=== PATIENT | female | born 1940 | race Caucasian/White ===

== ENCOUNTER 2017-09-20 15:02 | Emergency (ER) | payer MEDICARE ==
--- NOTE | 2017-09-20 15:06 | ED Physician Documentation ---
PD HPI SKIN - Stated complaint Stated Complaint: BILAT HAND RASH - History obtained from History obtained from: Patient - History of Present Illness Timing - onset: How many days ago (4) Timing - duration: Days (4) Timing - details: Gradual onset, Still present Location: RUE (initially left hand dorsum and then right as well, with intermittently feeling itchy all over, particularly when sitting in living room of [email or web address] they have been in for 5 days.), LUE Quality / character: Itchy, Discolored (red) Associated symptoms: No: Fever, Myalgias, Headache, Facial swelling, Dyspnea, N/ V/D Contributing factors: No: Exposed to medication, Exposed to food, Exposed to soap / lotion (staying at [employer], but she brings her own soaps and detergents with her.), Exposed to Poison dom/oak Similar symptoms before: Has not had sx before Recently seen: Not recently seen Review of Systems Constitutional: denies: Fever, Chills, Myalgias Nose: denies: Rhinorrhea / runny nose, Congestion Throat: denies: Sore throat Respiratory: denies: Dyspnea, Cough, Wheezing GI: denies: Nausea, Vomiting, Diarrhea Skin: reports: Rash (backs of hands and wrists) Neurologic: denies: Generalized weakness, Near syncope, Headache PD PAST MEDICAL HISTORY - Past Medical History Respiratory: None Endocrine/Autoimmune: None - Present Medications Home Medications: Ambulatory Orders Medication Instructions Recorded Confirmed Cephalexin [Keflex] 1 tab PO DAILY 09/20/17 Dexamethasone [Decadron] 4 mg PO DAILY #5 tablet 09/20/17 Levothyroxine [Synthroid] 1 tab PO DAILY 09/20/17 traMADol [Ultram] 100 mg PO DAILY 09/20/17 - Allergies Allergies/Adverse Reactions: Allergies Allergy/AdvReac Type Severity Reaction Status Date / Time Sulfa (Sulfonamide Allergy Unknown Verified 09/20/17 15:41 Antibiotics) amoxicillin AdvReac Rash Verified 09/20/17 15:41 ciprofloxacin [From Cipro] AdvReac Rash Verified 09/20/17 15:41 clindamycin AdvReac Rash Verified 09/20/17 15:41 phenylephrine AdvReac Anxiety Verified 09/20/17 15:41 pseudoephedrine AdvReac Anxiety Verified 09/20/17 15:41 [From Sudafed] PD ED PE NORMAL - Vitals Vital signs reviewed: Yes - General General: Alert and oriented X 3, No acute distress, Well developed/nourished - HEENT HEENT: Pharynx benign - Neck Neck: Supple, no meningeal sign, No adenopathy - Cardiac Cardiac: RRR, No murmur - Respiratory Respiratory: Clear bilaterally - Derm Derm: Normal color, Warm and dry, Other (red skin dorsum of hands, left more than right, with some pebbly texture. No vesicles. Rest of body without rash. ) - Neuro Neuro: Alert and oriented X 3, No motor deficit, Normal speech Results - Vitals Vitals: Vital Signs - 24 hr 09/20/17 15:12 Temperature 36.3 C L Heart Rate 60 Respiratory 16 Rate Blood Pressure 175/62 H O2 Saturation 94 Oxygen O2 Source Room air PD MEDICAL DECISION MAKING - ED course Complexity details: considered differential (does not look like bug bites. Seems c/w dermatitis but also with some general itchiness. Consider something in the rental they are staying in. Rx with antihistamines and steroids. They are leaving in 5 days. ), d/w patient - Sepsis Event Vital Signs: Vital Signs - 24 hr 09/20/17 15:12 Temperature 36.3 C L Heart Rate 60 Respiratory 16 Rate Blood Pressure 175/62 H O2 Saturation 94 Oxygen O2 Source Room air Departure - Departure Disposition: 01 Home, Self Care Clinical Impression: Hand dermatitis Condition: Stable Record reviewed to determine appropriate education?: Yes Instructions: ED Allergic Reaction Local Other Prescriptions: Dexamethasone [Decadron] 4 mg PO DAILY #5 tablet Comments: You can use some local hydrocortisone cream to the hand rash twice daily. You can use some lubricating ointment such as Aveeno. This may be a general allergy manifesting on the hands first and so use dexamethasone steroid initial dose here and you can continue that orally for 5 more days until you are gone from the [facility], presuming something is triggering this reaction. Continue your daily Claritin. Add Benadryl (diphenhydramine) every 6 hours if needed for general itchiness. Recheck if worsening despite these measures. Discharge Date/Time: 09/20/17 15:55
[2017-09-20 15:29] VITALS: BP 175/62
[2017-09-20] MEDS ORDERED: DEXAMETHASONE 10 MG/ML VIAL PO STA (15:33)
== END 2017-09-20 15:55 | disposition home or self-care (01) ==
LOC: ED 15:02
DX: L30.9 Dermatitis, unspecified (principal)
CPT/HCPCS: 99283